=== PATIENT | female | born 1930 | race Caucasian/White ===

== ENCOUNTER 2017-06-19 22:37 | Inpatient (IN) | payer OTHER, MEDICARE ==
[~2017-06-19] VITALS: Ht 170.2 cm; Wt 80.3 kg
[~2017-06-19 22:37] MED LIST: ATEN-104 PO; CELE20TA PO; CLOP75 PO; DICY1TAB26 PO; ECOT81TA2 PO; LEVO50TA4 PO; LISI5 PO; LORA-392 OR; MAGN400 PO; METF-324 PO; SIMV20 PO
[2017-06-19 22:43] VITALS: BP 138/97; PULSE 90; RESP 18; TEMP 97.6; O2SAT 91
[2017-06-19 22:52] VITALS: O2SAT 95
[2017-06-19] MEDS ORDERED: LEVO50TA4 PO (22:52)
[2017-06-19] MEDS ORDERED: CLOP75TA PO (22:52)
[2017-06-19] MEDS ORDERED: METF500T PO (22:52)
[2017-06-19] MEDS ORDERED: SIMV20TA PO (22:52)
[2017-06-19 23:29] LABS: INTERNATIONAL NORMALIZED RATIO 1.1 RATIO; PROTHROMBIN TIME - PATIENT 11.4 SEC (9.8-11.6)
[2017-06-19 23:30] LABS: ALBUMIN 3.8 GM/DL (3.4-5.0); ALT (GPT) 34 U/L (10-53); BICARBONATE 22.9 MEQ/L (21.0-32.0); BLOOD UREA NITROGEN 20 MG/DL (7-18); CALCIUM 8.3 MG/DL (8.5-10.1); CHLORIDE 93 MEQ/L (98-107); CREATININE 0.92 MG/DL (0.50-1.00); GLOMERULAR FILTRATION RATE 58 ML/MIN (>89); GLUCOSE,RANDOM 174 MG/DL (74-106); SODIUM (NA) 129 MEQ/L (136-145)
--- NOTE | 2017-06-19 23:33 | PD ---
HPI Chief Complaint: Cardiac Complaint Time Seen by Provider: 23:29 Travel History International Travel<30 days: No Contact w/Intl Traveler<30days: No Traveled to known affect area: No History of Present Illness HPI This is a 86-year-old female with history of hypertension, diabetes mellitus, CHF, hyperlipidemia, hypothyroidism, presents here with complaints of palpitations, shortness of breath and swelling of her bilateral legs. When paramedics arrived, they found her to be in A. fib with RVR. They administered 20 mg of Cardizem. They state that her heart rate went down into the 80s and 90s. The patient denies any chest pain, chest pressure. She does report shortness of breath. There is no other complaints at time of my examination. According to the son who is also at the bedside, the patient's primary care physician recently retired without letting her know. She is been without a primary care doctor for several months now. She did see her new primary care doctor and was supposed to have all of her medications restarted. Son reports that there is been a couple that have not been started. PFSH Past Medical History Asthma: Yes ( A CHILD) Atrial Fibrillation: Yes Anxiety: Yes Depression: No Heart Rhythm Problems: Yes (A FIB) Cancer: No Cardiovascular Problems: Yes High Cholesterol: Yes Chest Pain: No Congestive Heart Failure: Yes Diabetes: Yes Patient Takes Glucophage: Yes Diminished Hearing: No Endocrine: Yes Genitourinary: No Headaches: Yes Hypertension: Yes Immune Disorder: No Implanted Vascular Access Dvce: No Musculoskeletal: No Neurologic: No Psychiatric: Yes Reproductive: No Respiratory: No Immunizations Current: No Thyroid Disease: No Triglycerides - High: Yes Tetanus Vaccination: Unknown Influenza Vaccination: No PNEUMOCCOCAL Vaccine (Year): 1 Menopausal: Yes Past Surgical History Abdominal Surgery: Yes (CHOLECYSTECTOMY) Cholecystectomy: Yes Mastectomy: Yes (R) Other Surgery: Yes (Cholecystectomy, right mastectomy) Social History Alcohol Use: No Tobacco Use: No Substance Use: No Allergies-Medications (Allergen,Severity, Reaction): Coded Allergies: penicillin G (Unverified Allergy, Severe, "PASSED OUT", 06/19/17) Sulfa (Sulfonamide Antibiotics) (Unverified Allergy, Unknown, 06/19/17) Reported Meds & Prescriptions Reported Meds & Active Scripts Active Reported Simvastatin 20 Mg Tab 20 Mg PO DAILY Levothyroxine (Levothyroxine Sodium) 50 Mcg Tab 50 Mcg PO DAILY Metformin (Metformin HCl) 500 Mg Tab 500 Mg PO BIDPC Clopidogrel (Clopidogrel Bisulfate) 75 Mg Tab 75 Mg PO DAILY Review of Systems Except as stated in HPI: all other systems reviewed are Neg General / Constitutional: No: Fever, Chills HENT: No: Headaches, Lightheadedness, Neck Pain Cardiovascular: Positive: Palpitations, Tachycardia, No: Chest Pain or Discomfort, Irregular Rhythm Respiratory: Positive: Shortness of Breath, No: Cough Gastrointestinal: No: Nausea, Vomiting, Abdominal Pain Genitourinary: No: Frequency, Dysuria Musculoskeletal: Positive: Edema, No: Pain Neurologic: No: Weakness, Dizziness, Headache Physical Exam Narrative GENERAL: Well-developed well-nourished female in no acute respiratory distress. SKIN: Focused skin assessment warm/dry. HEAD: Atraumatic. Normocephalic. EYES: Pupils equal and round. No scleral icterus. No injection or drainage. ENT: No nasal bleeding or discharge. Mucous membranes pink and moist. NECK: Trachea midline. Supple. No JVD. CARDIOVASCULAR: Tachycardic with a rate in the low 100s. It was 107 when I entered the room. It appears to be sinus rhythm on the monitor however there is occasional PAC noted. Patient was reportedly in A. fib with RVR prior to arrival. RESPIRATORY: Fine rales heard at the bilateral bases. GASTROINTESTINAL: Abdomen soft, non-tender, nondistended. Hepatic and splenic margins not palpable. MUSCULOSKELETAL: No obvious deformities. No clubbing. No cyanosis. 1+-2+ edema bilateral pretibial areas. NEUROLOGICAL: Awake and alert. No obvious cranial nerve deficits. Motor grossly within normal limits. Data Data Last Documented VS Vital Signs Date Time Temp Pulse Resp B/P (MAP) Pulse Ox O2 Delivery O2 Flow Rate FiO2 06/20/17 00:10 110 16 152/93 (112) 98 Nasal Cannula 2.00 06/19/17 22:43 97.6 Orders Orders Complete Blood Count With Diff (06/19/17 23:02) Comprehensive Metabolic Panel (06/19/17 23:02) Ckmb (Isoenzyme) Profile (06/19/17 23:02) Troponin I (06/19/17 23:02) B-Type Natriuretic Peptide (06/19/17 23:02) Prothrombin Time / Inr (Pt) (06/19/17 23:02) Act Partial Throm Time (Ptt) (06/19/17 23:02) Thyroid Stimulating Hormone (06/19/17 23:02) Chest, Single Ap (06/19/17 23:02) Iv Access Insert/Monitor (06/19/17 23:02) Ecg Monitoring (06/19/17 23:02) Oximetry (06/19/17 23:02) Diltiazem Inj (Cardizem Inj) (06/19/17 23:30) Furosemide Inj (Lasix Inj) (06/20/17 00:00) Urinary Catheter Insert/Apply (06/20/17 00:40) Morphine Inj (Morphine Inj) (06/20/17 00:45) Ondansetron Inj (Zofran Inj) (06/20/17 00:45) Admit Order (Ed Use Only) (06/20/17 01:01) Labs Laboratory Tests Test 06/19/17 23:00 White Blood Count 11.7 TH/MM3 Red Blood Count 4.18 MIL/MM3 Hemoglobin 11.7 GM/DL Hematocrit 35.2 % Mean Corpuscular Volume 84.2 FL Mean Corpuscular Hemoglobin 28.1 PG Mean Corpuscular Hemoglobin Concent 33.3 % Red Cell Distribution Width 15.2 % Platelet Count 292 TH/MM3 Mean Platelet Volume 8.8 FL Neutrophils (%) (Auto) 77.6 % Lymphocytes (%) (Auto) 12.7 % Monocytes (%) (Auto) 8.5 % Eosinophils (%) (Auto) 0.9 % Basophils (%) (Auto) 0.3 % Neutrophils # (Auto) 9.1 TH/MM3 Lymphocytes # (Auto) 1.5 TH/MM3 Monocytes # (Auto) 1.0 TH/MM3 Eosinophils # (Auto) 0.1 TH/MM3 Basophils # (Auto) 0.0 TH/MM3 CBC Comment DIFF FINAL Differential Comment Prothrombin Time 11.4 SEC Prothromb Time International Ratio 1.1 RATIO Activated Partial Thromboplast Time 27.2 SEC Blood Urea Nitrogen 20 MG/DL Creatinine 0.92 MG/DL Random Glucose 174 MG/DL Total Protein 6.8 GM/DL Albumin 3.8 GM/DL Calcium Level 8.3 MG/DL Alkaline Phosphatase 72 U/L Aspartate Amino Transf (AST/SGOT) 33 U/L Alanine Aminotransferase (ALT/SGPT) 34 U/L Total Bilirubin 0.6 MG/DL Sodium Level 129 MEQ/L Potassium Level 3.8 MEQ/L Chloride Level 93 MEQ/L Carbon Dioxide Level 22.9 MEQ/L Anion Gap 13 MEQ/L Estimat Glomerular Filtration Rate 58 ML/MIN Total Creatine Kinase 91 U/L Troponin I 0.38 NG/ML B-Type Natriuretic Peptide 1707 PG/ML Thyroid Stimulating Hormone 3rd Gen 4.490 uIU/ML MDM Medical Decision Making Medical Screen Exam Complete: Yes Emergency Medical Condition: Yes Differential Diagnosis Uncontrolled A. fib versus CHF versus ACS versus metabolic derangement. Narrative Course 86-year-old female presents after having shortness of breath and palpitations. Patient found her to be in A. fib RVR. Patient was given 20 mg of IV diltiazem. She was in sinus tach when she arrived here. She started to increase her heart rate into the low 100s. She was started on a diltiazem drip. Chest x-ray shows congestive heart failure. BNP was 1700. Troponin was elevated at 0.34 which is likely secondary to the CHF and the elevated heart rate. Patient is having no chest pain at time of my examination. Case was discussed with Dr. Hoover. She is in agreement with her admission. She will be admitted to the [facility]. Critical Care Narrative Aggregate critical care time was 45 minutes. Time to perform other separately billable procedures was not included in the critical care time. My time did not include minutes spent treating any other patients simultaneously or on activities that did not directly contribute to the patient's treatment. The services I provided to this patient were to treat and/or prevent clinically significant deterioration that could result in: I provided critical care services requiring my management, as noted below: Chart data review, documentation time, medication orders and management, vital sign assessments/reviewing monitor data, ordering and reviewing lab tests, ordering and interpreting/reviewing x-rays and diagnostic studies, care of the patient and discussion of the patient with the admitting physicians. Diagnosis Primary Impression: Atrial fibrillation with RVR Additional Impressions: YVONNE (acute kidney injury) Hyponatremia Hypothyroidism Elevated troponin Congestive heart failure Admitting Information Admitting Physician Requests: Admit Braydon Garcia MD Jun 19, 2017 23:33
[2017-06-19 23:40] LABS: ALKALINE PHOSPHATASE 72 U/L (45-117); AST (GOT) 33 U/L (15-37); TOTAL BILIRUBIN ADULT 0.6 MG/DL (0.2-1.0); TOTAL PROTEIN 6.8 GM/DL (6.4-8.2); TROPONIN I 0.38 NG/ML (0.02-0.05)
--- NOTE | 2017-06-19 23:47 | RADRPT ---
EXAM DATE/TIME: 06/19/2017 23:33 [facility] COMPARISON: CHEST SINGLE AP, December 19, 2015, 17:49. INDICATIONS : Chest pain, cough. MEDICAL HISTORY : None. SURGICAL HISTORY : None. ENCOUNTER: Initial ACUITY: 1 day PAIN SCORE: 2/10 LOCATION: Bilateral chest FINDINGS: A single view of the chest demonstrates cardiomegaly and right basilar consolidation. Probable small right pleural effusion. Pulmonary vascular congestion. Osseous structures are intact. CONCLUSION: 1. Cardiomegaly with pulmonary vascular congestion. 2. Right basilar consolidation and probable small pleural effusion. Jax Meadows MD on June 19, 2017 at 23:44 Board Certified Radiologist. This report was verified electronically.
[2017-06-20] VITALS (12 sets, daily range): BP systolic 102–152; BP diastolic 69–113; PULSE 68–110; RESP 16–21; TEMP 97.2–98.9; O2SAT 94–98
[2017-06-20] MEDS ORDERED: FUROSEMIDE 40 MG/4 ML VIAL IV PUSH ONE
[2017-06-20 00:02] LABS: AUTOMATED NEUTROPHIL # 9.1 TH/MM3 (1.8-7.7); BASOPHIL % 0.3 % (0.0-2.0); EOSINOPHIL # 0.1 TH/MM3 (0-0.4); EOSINOPHIL % 0.9 % (0.0-4.0); HEMATOCRIT 35.2 % (35.0-46.0); HEMOGLOBIN 11.7 GM/DL (11.6-15.3); LYMPH % 12.7 % (9.0-44.0); LYMPHOCYTE # 1.5 TH/MM3 (1.0-4.8); MEAN CELL VOLUME 84.2 FL (80.0-100.0); MEAN CORPUSCULAR HEMOGLOBIN 28.1 PG (27.0-34.0); MEAN CORPUSCULAR HGB CONC 33.3 % (32.0-36.0); MEAN PLATELET VOLUME 8.8 FL (7.0-11.0); MONO % 8.5 % (0.0-8.0); NEUT % 77.6 % (16.0-70.0); PLATELET COUNT 292 TH/MM3 (150-450); RED BLOOD COUNT 4.18 MIL/MM3 (4.00-5.30); RED CELL DISTRIBUTION WIDTH 15.2 % (11.6-17.2); WHITE BLOOD COUNT 11.7 TH/MM3 (4.0-11.0)
[2017-06-20] MEDS: DILTIAZEM INJ 125 MG in SODIUM CHLORIDE 0.9% INJ 100 ML IV PRN ×2 (00:09→10:21)
[2017-06-20] MEDS ORDERED: ONDANSETRON HCL 4 MG/2 ML VIAL IV PUSH ONE (00:45)
[2017-06-20] MEDS ORDERED: MORPHINE SULFATE 4 MG/ML INJ IV PUSH ONE (00:45)
[2017-06-20] MEDS ORDERED: SODIUM CHLOR 0.9% 1000 ML INJ 1,000 ML IV SCH (01:03)
[2017-06-20] MEDS ORDERED: ONDANSETRON HCL 4 MG/2 ML VIAL IVP PRN (01:15)
[2017-06-20] MEDS ORDERED: MORPHINE SULFATE 2 MG/ML INJ IV PUSH PRN (01:15)
[2017-06-20] MEDS ORDERED: SODIUM CHLORIDE 0.9% FLUSH 10 ML FLUSH IV FLUSH PRN (01:15)
[2017-06-20] MEDS ORDERED: SENNOSIDES 8.6 MG TAB PO PRN (01:15)
[2017-06-20] MEDS ORDERED: BISACODYL 10 MG SUPP RECTAL PRN (01:15)
[2017-06-20] MEDS ORDERED: MAGNESIUM HYDROXIDE SUSP 30 ML CUP PO PRN (01:15)
[2017-06-20] MEDS ORDERED: ACETAMINOPHEN/HYDROcodone 325 MG/5 MG TAB PO PRN (01:15)
[2017-06-20] MEDS ORDERED: LACTULOSE SYRUP 20 GM/30 ML CUP PO PRN (01:15)
--- NOTE | 2017-06-20 02:52 | HHI.HP ---
HPI Service [facility] Primary Care Physician Tanner Larsen MD Admission Diagnosis atrial fibrillation with rvr, chf, elevated troponin Diagnoses: (1) Atrial fibrillation with RVR Diagnosis: Principal (2) CHF (congestive heart failure) Diagnosis: Principal (3) Elevated troponin Diagnosis: Principal (4) DM (diabetes mellitus) Diagnosis: Principal Travel History International Travel<30 Days: No Contact w/Intl Traveler <30 Da: No Traveled to Known Affected Are: No History of Present Illness This is an 86-year-old female with a PMH of HTN, Hyperlipidemia, A. fib, Anxiety , CHF (Echo 01/01/2011 w/ EF 55-60%) and Hypothyroidism who was brought to the ER by EMS secondary to SOB and palpitations. Denies chest pain or cough. No associated fever, chills or sick contacts. Upon EMS arrival, pt noted to be in A-fib w/ RVR, HR 140's s/p Cardizem 20mg IV w/ some improvement. States she was previously following w/ Dr. Navarro, however he left the practice and was not given refills on her prescriptions. On arrival, BP 138/97, HR 90, O2 sat 91 % RA, Afebrile. WBC 11.7. Na 129. GFR 58. Troponin 0 0.38. BNP 1707. INR 1.1. CXR with cardiomegaly and pulmonary vascular congestion. Currently on Cardizem gtt Review of Systems Except as stated in HPI: all other systems reviewed are Neg ROS: 14 point review of systems otherwise negative. Past Family Social History Past Medical History PMH: HTN, Hyperlipidemia, A. fib, Anxiety, CHF (Echo 01/01/2011 w/ EF 55-60%) and Hypothyroidism Past Surgical History PAST SURGICAL HISTORY: Cholecystectomy, Right Mastectomy Allergies: Coded Allergies: penicillin G (Unverified Allergy, Severe, "PASSED OUT", 06/19/17) Sulfa (Sulfonamide Antibiotics) (Unverified Allergy, Unknown, 06/19/17) Family History PAST FAMILY HISTORY: Reviewed. No h/o DM or CAD Social History PAST SOCIAL HISTORY: Negative for alcohol, tobacco or drugs. Physical Exam Vital Signs Vital Signs Date Time Temp Pulse Resp B/P (MAP) Pulse Ox O2 Delivery O2 Flow Rate FiO2 06/20/17 02:09 105 16 151/101 (118) 95 Nasal Cannula 2.00 06/20/17 00:10 110 16 152/93 (112) 98 Nasal Cannula 2.00 06/20/17 00:09 110 152/93 06/19/17 22:52 95 Nasal Cannula 2.00 06/19/17 22:43 97.6 90 18 138/97 (111) 91 Physical Exam PE: GENERAL: Very pleasant elderly white female in no acute distress. HEENT: PERRLA, EOMI. No scleral icterus or conjunctival pallor. No lid lag or facial droop. CARDIOVASCULAR: Sinus tachycardia, HR 100's. No obvious murmurs to auscultation. No chest tenderness to palpation. RESPIRATORY: No obvious rhonchi or wheezing. Clear to auscultation. Breath sounds equal bilaterally. GASTROINTESTINAL: Abdomen soft, non-tender, nondistended. BS normal. MUSCULOSKELETAL: Extremities without clubbing, cyanosis, or edema. No obvious deformities. NEUROLOGICAL: Awake, alert and oriented x4. No focal neurologic deficits. Moving both upper and lower extremities spontaneously. Laboratory Laboratory Tests Test 06/19/17 23:00 White Blood Count 11.7 Red Blood Count 4.18 Hemoglobin 11.7 Hematocrit 35.2 Mean Corpuscular Volume 84.2 Mean Corpuscular Hemoglobin 28.1 Mean Corpuscular Hemoglobin Concent 33.3 Red Cell Distribution Width 15.2 Platelet Count 292 Mean Platelet Volume 8.8 Neutrophils (%) (Auto) 77.6 Lymphocytes (%) (Auto) 12.7 Monocytes (%) (Auto) 8.5 Eosinophils (%) (Auto) 0.9 Basophils (%) (Auto) 0.3 Neutrophils # (Auto) 9.1 Lymphocytes # (Auto) 1.5 Monocytes # (Auto) 1.0 Eosinophils # (Auto) 0.1 Basophils # (Auto) 0.0 CBC Comment DIFF FINAL Differential Comment Prothrombin Time 11.4 Prothromb Time International Ratio 1.1 Activated Partial Thromboplast Time 27.2 Blood Urea Nitrogen 20 Creatinine 0.92 Random Glucose 174 Total Protein 6.8 Albumin 3.8 Calcium Level 8.3 Alkaline Phosphatase 72 Aspartate Amino Transf (AST/SGOT) 33 Alanine Aminotransferase (ALT/SGPT) 34 Total Bilirubin 0.6 Sodium Level 129 Potassium Level 3.8 Chloride Level 93 Carbon Dioxide Level 22.9 Anion Gap 13 Estimat Glomerular Filtration Rate 58 Total Creatine Kinase 91 Troponin I 0.38 B-Type Natriuretic Peptide 1707 Thyroid Stimulating Hormone 3rd Gen 4.490 Result Diagram: 06/19/17 2300 06/19/17 2300 Caprini VTE Risk Assessment Caprini VTE Risk Assessment: Mod/High Risk (score >= 2) Caprini Risk Assessment Model Point Value = 1 Point Value = 2 Point Value = 3 Point Value = 5 Age 41-60 Minor surgery BMI > 25 kg/m2 Swollen legs Varicose veins or History of unexplained or recurrent spontaneous Oral contraceptives or hormone replacement Sepsis (< 1 month) Serious lung disease, including pneumonia (< 1 month) Abnormal pulmonary function Acute myocardial infarction Congestive heart failure (< 1 month) History of inflammatory bowel disease Medical patient at bed rest Age 61-74 Arthroscopic surgery Major open surgery (> 45 min) Laparoscopic surgery (> 45 min) Malignancy Confined to bed (> 72 hours) Immobilizing plaster cast Central venous access Age >= 75 History of VTE Family history of VTE Factor V Leiden Prothrombin [id number] Lupus anticoagulant Anticardiolipin antibodies Elevated serum homocysteine Heparin-induced thrombocytopenia Other congenital or acquired thrombophilia Stroke (< 1 month) Elective arthroplasty Hip, pelvis, or leg fracture Acute spinal cord injury (< 1 month) Prophylaxis Regimen Total Risk Factor Score Risk Level Prophylaxis Regimen 0-1 Low Early ambulation 2 Moderate Order ONE of the following: *Sequential Compression Device (SCD) *Heparin 5000 units SQ BID 3-4 Higher Order ONE of the following medications: *Heparin 5000 units SQ TID *Enoxaparin/Lovenox 40 mg SQ daily (WT < 150 kg, CrCl > 30 mL/min) *Enoxaparin/Lovenox 30 mg SQ daily (WT < 150 kg, CrCl > 10-29 mL/min) *Enoxaparin/Lovenox 30 mg SQ BID (WT < 150 kg, CrCl > 30 mL/min) AND/OR *Sequential Compression Device (SCD) 5 or more Highest Order ONE of the following medications: *Heparin 5000 units SQ TID (Preferred with Epidurals) *Enoxaparin/Lovenox 40 mg SQ daily (WT < 150 kg, CrCl > 30 mL/min) *Enoxaparin/Lovenox 30 mg SQ daily (WT < 150 kg, CrCl > 10-29 mL/min) *Enoxaparin/Lovenox 30 mg SQ BID (WT < 150 kg, CrCl > 30 mL/min) AND *Sequential Compression Device (SCD) Assessment and Plan Problem List: (1) Atrial fibrillation with RVR ICD Code: I48.91 - Unspecified atrial fibrillation (2) Elevated troponin ICD Code: R74.8 - Abnormal levels of other serum enzymes Status: Acute (3) CHF (congestive heart failure) ICD Code: I50.9 - Heart failure, unspecified (4) DM (diabetes mellitus) ICD Code: E11.9 - Type 2 diabetes mellitus without complications Assessment and Plan A/P: 1. A. fib: w/ RVR upon EMS arrival, s/p Cardizem 20mg IV w/ improvement, persistent tachycardia, currently on Cardizem gtt. Admit to [facility], telemetry. Consult Cardiology for further eval. Check Echo. 2. Elevated Trop: Trop 0.38, no c/o chest pain, likely secondary to rapid A- fib and CHF. Check serial cardiac enzymes. ASA, Statin. Consult Cardiology as above. 3. CHF: Acute on Chronic. Diastolic. Echo 01/01/11 w/ EF 55-60%. BNP 1707. CXR with pulmonary vascular congestion, images reviewed by me. S/p Lasix 40mg IV in ER. Monitor I/O. Continue diuresis. 4. DM: Sliding scale w/ Accu-Cheks. Hold Metformin for possible cardiac intervention. 5. DVT Prophylaxis: Heparin sq 6. Social work for d/c planning as needed. 7. Case discussed w/ ER physician at length, labs/records/imaging reviewed by me. Physician Certification 2 Midnight Certification Type: Admission for Inpatient Services Order for Inpatient Services The services are ordered in accordance with Medicare regulations or non- Medicare payer requirements, as applicable. In the case of services not specified as inpatient-only, they are appropriately provided as inpatient services in accordance with the 2-midnight benchmark. Estimated LOS (days): 2 days is the estimated time the patient will need to remain in the hospital, assuming treatment plan goals are met and no additional complications. Post-Hospital Plan: Not yet determined Nela Hull MD Jun 20, 2017 02:52
[2017-06-20] MEDS: ACETAMINOPHEN 325 MG TAB PO PRN (03:50)
[2017-06-20] MEDS: LEVOTHYROXINE SODIUM 50 MCG TAB PO SCH (05:20)
[2017-06-20] MEDS ORDERED: FUROSEMIDE 20 MG/2 ML VIAL IV PUSH SCH (09:00)
[2017-06-20] MEDS: DOCUSATE SODIUM 50 MG/SENNA 8.6 MG TAB PO SCH ×2 (09:03→20:44)
[2017-06-20] MEDS: PRAVASTATIN SOD 40 MG TAB PO SCH (09:03)
[2017-06-20] MEDS: CLOPIDOGREL 75 MG TAB PO SCH (09:03)
[2017-06-20] MEDS: HEPARIN SODIUM - SQ 10,000 UNITS/ML VIAL SQ SCH ×2 (09:04→20:44)
[2017-06-20] MEDS: SODIUM CHLORIDE 0.9% FLUSH 10 ML FLUSH IV FLUSH SCH ×2 (09:04→20:44)
[2017-06-20] MEDS ORDERED: DILTIAZEM INJ 125 MG in SODIUM CHLORIDE 0.9% INJ 100 ML IV PRN (10:30)
[2017-06-20 10:33] LABS: AUTOMATED NEUTROPHIL # 9.9 TH/MM3 (1.8-7.7); BASOPHIL # 0.1 TH/MM3 (0-0.2); BASOPHIL % 0.5 % (0.0-2.0); EOSINOPHIL # 0.3 TH/MM3 (0-0.4); HEMATOCRIT 34.8 % (35.0-46.0); HEMOGLOBIN 11.4 GM/DL (11.6-15.3); LYMPH % 13.9 % (9.0-44.0); LYMPHOCYTE # 1.8 TH/MM3 (1.0-4.8); MEAN CELL VOLUME 85.3 FL (80.0-100.0); MEAN CORPUSCULAR HEMOGLOBIN 28.1 PG (27.0-34.0); MEAN CORPUSCULAR HGB CONC 32.9 % (32.0-36.0); MEAN PLATELET VOLUME 8.5 FL (7.0-11.0); MONO % 9.2 % (0.0-8.0); MONOCYTE # 1.2 TH/MM3 (0-0.9); NEUT % 74.4 % (16.0-70.0); PLATELET COUNT 268 TH/MM3 (150-450); RED BLOOD COUNT 4.08 MIL/MM3 (4.00-5.30); RED CELL DISTRIBUTION WIDTH 15.2 % (11.6-17.2); WHITE BLOOD COUNT 13.3 TH/MM3 (4.0-11.0)
[2017-06-20 10:54] LABS: ALBUMIN 3.8 GM/DL (3.4-5.0); BICARBONATE 28.5 MEQ/L (21.0-32.0); BLOOD UREA NITROGEN 19 MG/DL (7-18); CALCIUM 8.3 MG/DL (8.5-10.1); CHLORIDE 90 MEQ/L (98-107); CREATININE 0.89 MG/DL (0.50-1.00); GLOMERULAR FILTRATION RATE 60 ML/MIN (>89); GLUCOSE,RANDOM 163 MG/DL (74-106); SODIUM (NA) 127 MEQ/L (136-145)
[2017-06-20 10:55] LABS: ALT (GPT) 38 U/L (10-53); AST (GOT) 35 U/L (15-37)
[2017-06-20 10:59] LABS: ALKALINE PHOSPHATASE 72 U/L (45-117); TOTAL BILIRUBIN ADULT 0.6 MG/DL (0.2-1.0); TOTAL PROTEIN 6.8 GM/DL (6.4-8.2)
--- NOTE | 2017-06-20 11:02 | MB ---
cc: Aubrey Darling MD DATE: 06/20/2017 For evaluation of AFib, CHF and elevated troponin. Peggy Garrett is an 86-year-old woman admitted to the hospital, having been out of medicines for a year. She used to be a patient of Dr. Navarro who is retired and Dr. Dhiraj Dempsey. She last saw Dr. Dempsey 01/22/2011. Dr. Navarro retired. She let herself completely run out of medications and had not bothered to seek a new physician or get back on medications. This is despite having hypertension, hyperlipidemia, and diabetes mellitus. When asked why she thought it was okay to be completely without medications for a year, she did not have any excuse. She comes in now with the onset of shortness of breath and palpitations. She really does not have any typical angina that I can elicit, although her troponin is elevated. Shortness of breath and swelling has been going on at least a couple of days. PAST MEDICAL HISTORY: Includes hypertension, diabetes, hyperlipidemia, previous arrhythmia for which she was on digoxin and beta heidi for over 20 years, hypothyroidism, history of rheumatic fever and heart murmur as a child, previous normal echos. PAST SURGICAL HISTORY: Includes right mastectomy and cholecystectomy. MEDICATIONS: She was on nothing prior to this admission. ALLERGIES: INCLUDE PENICILLIN. FAMILY HISTORY: Noncontributory. SOCIAL HISTORY: Nonsmoker, nondrinker. . IMPORTANT REVIEW OF SYSTEMS: She more or less stopped walking in the past year and has not driven in the past year. PHYSICAL EXAMINATION: Reveals an elderly white female, alert and oriented. VITAL SIGNS: Charted. She is on IV Diltiazem currently at 10 mg an hour. Telemetry showing sinus rhythm. HEENT: Unremarkable. NECK: Shows mild JVD. There are no carotid bruits. CHEST: Shows bibasilar rales. CARDIAC: S1, S2. Regular rate and rhythm. Soft systolic murmur early peaking. ABDOMEN: Soft, nontender. EXTREMITIES: Reveal 1+ edema. EKG shows sinus rhythm with first-degree AV block, atrial premature complexes, nonspecific ST-T wave changes. Cannot exclude anterior ischemia or ST changes from LVH. LABORATORIES: Are charted. Her TSH is 4.49. She has been off Synthroid a year. BNP is elevated at 1707. Troponin is elevated at 0.38; repeat value is pending. Creatinine is preserved at 0.92. Hematocrit 35.2. Chest x-ray shows cardiomegaly and CHF. . Apparently she was in atrial fibrillation, RVR. She has converted to sinus rhythm after receiving IV diltiazem. All the EKGs here are showing sinus rhythm. IMPRESSION: 1. Paroxysmal atrial fibrillation with rapid ventricular response, has converted back to sinus rhythm. She has an elevated CHADS-VASc score and ideally should be anticoagulated. 2. Hypertension, hyperlipidemia and diabetes, off medicines for 1 year. She is in new-onset congestive heart failure. Echo pending to see how much of this is systolic versus diastolic. PLAN: I am going to introduce low-dose beta heidi and low-dose diltiazem and wean her off the diltiazem drip. Going to resume her losartan. Going to increase her Lasix to 40 IV b.i.d. and add potassium supplements. I talked to her about a heart catheterization. She would rather be treated conservatively. Once she is tuned up, will probably consider nuclear stress test. Recheck troponin tomorrow morning. Recheck electrolytes and magnesium tomorrow morning. Further therapy to be determined. MD JADE Hahn/KINGA , 10:35 AM , 11:02 AM
[2017-06-20] MEDS: LOSARTAN 25 MG TAB PO SCH ×2 (12:35→20:44)
[2017-06-20] MEDS: DILTIAZEM-CD 120 MG CAP ER PO SCH (12:35)
[2017-06-20] MEDS: METOPROLOL TARTRATE 25 MG TAB PO SCH ×2 (12:35→20:44)
[2017-06-20] MEDS: POTASSIUM CHLORIDE 20 MEQ CONTROLLED RELEASE TAB PO SCH ×2 (12:35→17:00)
[2017-06-20] MEDS: ASPIRIN 81 MG CHEW TAB PO SCH (12:35)
[2017-06-20] MEDS: LORazepam 0.5 MG TAB PO PRN (16:59)
[2017-06-20] MEDS: FUROSEMIDE 20 MG/2 ML VIAL IV PUSH SCH (17:00)
[2017-06-21] VITALS (8 sets, daily range): BP systolic 109–135; BP diastolic 64–97; PULSE 71–103; RESP 17–24; TEMP 97.5–97.9; O2SAT 92–98
--- NOTE | 2017-06-21 00:11 | EKG ---
Date Performed: 06/20/2017 Time Performed: 07:19:59 PTAGE: 86 years EKG: Sinus rhythm WITH FIRST DEGREE AV BLOCK WITH OCCASIONAL SUPRAVENTRICULAR PREMATURE COMPLEXES NONSPECIFIC T-WAVE A BNORMALITY ABNORMAL ECG PREVIOUS TRACING : 06/19/2017 22.45 DOCTOR: Liban Thorpe Interpretating Date/Time 06/21/2017 00:04:47
--- NOTE | 2017-06-21 00:18 | EKG ---
Date Performed: 06/19/2017 Time Performed: 22:45:02 PTAGE: 86 years EKG: SINUS TACHYCARDIA WITH OCCASIONAL SUPRAVENTRICULAR PREMATURE COMPLEXES POSSIBLE LEFT ATRIAL ENLARGEMENT MODERATE T-WAVE ABNORMALITY, CONSIDER ANTERIOR ISCHEMIA ABNORMAL ECG PREVIOUS TRACING : 12/19/2015 17.13 DOCTOR: Liban Thorpe Interpretating Date/Time 06/21/2017 00:09:22
[2017-06-21] MEDS: LEVOTHYROXINE SODIUM 50 MCG TAB PO SCH (05:04)
[2017-06-21 08:24] LABS: ALBUMIN 3.5 GM/DL (3.4-5.0); ALT (GPT) 36 U/L (10-53); AST (GOT) 30 U/L (15-37); BICARBONATE 23.5 MEQ/L (21.0-32.0); BLOOD UREA NITROGEN 21 MG/DL (7-18); CALCIUM 8.6 MG/DL (8.5-10.1); CHLORIDE 91 MEQ/L (98-107); CREATININE 0.86 MG/DL (0.50-1.00); GLOMERULAR FILTRATION RATE 63 ML/MIN (>89); GLUCOSE,RANDOM 108 MG/DL (74-106); SODIUM (NA) 128 MEQ/L (136-145)
[2017-06-21 08:28] LABS: ALKALINE PHOSPHATASE 70 U/L (45-117); MAGNESIUM 1.3 MG/DL (1.5-2.5); TOTAL BILIRUBIN ADULT 0.6 MG/DL (0.2-1.0); TOTAL PROTEIN 6.8 GM/DL (6.4-8.2); TROPONIN I 0.28 NG/ML (0.02-0.05)
--- NOTE | 2017-06-21 09:04 | PD.CARD.PN ---
Subjective Subjective Remarks Denies angina/chest pain, dyspnea Objective Medications Current Medications Medications (Trade) Dose Ordered Sig/Angelina Route Start Time Stop Time Status Last Admin (NS Flush) 2 ml UNSCH PRN IV FLUSH 06/20/17 01:15 (NS Flush) 2 ml BID IV FLUSH 06/20/17 09:00 06/20/17 09:04 (Zofran Inj) 4 mg Q6H PRN IVP 06/20/17 01:15 (Heparin Inj) 5,000 units Q12H SQ 06/20/17 09:00 06/20/17 20:44 (Tylenol) 650 mg Q6H PRN PO 06/20/17 01:15 06/20/17 03:50 ([place] 5-325 Mg) 1 tab Q4H PRN PO 06/20/17 01:15 (Morphine Inj) 2 mg Q3H PRN IV PUSH 06/20/17 01:15 (Meka-Colace) 1 tab BID PO 06/20/17 09:00 06/20/17 20:44 (Milk Of Magnesia Liq) 30 ml Q12H PRN PO 06/20/17 01:15 (Senokot) 17.2 mg Q12H PRN PO 06/20/17 01:15 (Dulcolax Supp) 10 mg DAILY PRN RECTAL 06/20/17 01:15 (Lactulose Liq) 30 ml DAILY PRN PO 06/20/17 01:15 (Plavix) 75 mg DAILY PO 06/20/17 09:00 06/20/17 09:03 (Synthroid) 50 mcg DAILY@0600 PO 06/20/17 06:00 06/21/17 05:04 (Pravachol) 40 mg DAILY PO 06/20/17 09:00 06/20/17 09:03 (Cozaar) 25 mg BID PO 06/20/17 11:00 06/20/17 20:44 (Lasix Inj) 40 mg BID@ IV PUSH 06/20/17 18:00 06/20/17 17:00 (Lopressor) 25 mg Q12HR PO 06/20/17 11:00 06/20/17 20:44 (Cardizem Cd) 120 mg DAILY PO 06/20/17 11:00 06/20/17 12:35 Diltiazem HCl 125 mg/Sodium Chloride 125 ml @ 5 mls/hr TITRATE PRN IV 06/20/17 10:30 (KCl) 20 meq TID PO 06/20/17 13:00 06/20/17 17:00 (Aspirin Chew) 81 mg DAILY PO 06/20/17 11:00 06/20/17 12:35 (Ativan) 0.5 mg Q8H PRN PO 06/20/17 17:00 06/20/17 16:59 Magnesium Sulfate/ Dextrose 100 ml @ 100 mls/hr Q1H IV 06/21/17 09:00 06/21/17 10:59 UNV Vital Signs / I&O Vital Signs Date Time Temp Pulse Resp B/P (MAP) Pulse Ox O2 Delivery O2 Flow Rate FiO2 06/21/17 04:09 84 06/21/17 04:00 97.6 103 18 135/87 (103) 93 06/21/17 00:00 97.9 95 17 109/69 (82) 98 06/20/17 23:59 91 06/20/17 20:08 97 06/20/17 20:00 97.9 96 18 108/69 (82) 98 06/20/17 16:00 76 06/20/17 16:00 98.9 90 21 118/80 (93) 94 06/20/17 12:00 85 06/20/17 12:00 98.0 85 18 102/77 (85) 95 06/20/17 10:21 77 I/O 06/20/17 06/20/17 06/20/17 06/21/17 06/21/17 06/21/17 07:00 15:00 23:00 07:00 15:00 23:00 Intake Total 120 ml 800 ml 120 ml Output Total 700 ml 600 ml 550 ml Balance -580 ml 200 ml -430 ml Intake Oral 120 ml 800 ml 120 ml Output Urine Total 700 ml 600 ml 550 ml Bladder Scan Volume Amount 8 ml # Bowel Movements 0 Physical Exam GENERAL: No acute distress. Confused HEENT: Jugular venous is nl CHEST: Lungs diminished right base (?effusion). Rales resolved. Unlabored respiratory effort. CARDIAC: Regular rate and rhythm without S3, S4, or murmur. Tele SR with PVC's/ PAC's ABDOMEN: Soft, nontender, no hepatosplenomegaly. Bowel sounds present. EXTREMITIES: No clubbing, cyanosis, or edema. Laboratory Laboratory Tests Test 06/20/17 10:15 06/20/17 15:00 06/21/17 06:45 White Blood Count 13.3 TH/MM3 Red Blood Count 4.08 MIL/MM3 Hemoglobin 11.4 GM/DL Hematocrit 34.8 % Mean Corpuscular Volume 85.3 FL Mean Corpuscular Hemoglobin 28.1 PG Mean Corpuscular Hemoglobin Concent 32.9 % Red Cell Distribution Width 15.2 % Platelet Count 268 TH/MM3 Mean Platelet Volume 8.5 FL Neutrophils (%) (Auto) 74.4 % Lymphocytes (%) (Auto) 13.9 % Monocytes (%) (Auto) 9.2 % Eosinophils (%) (Auto) 2.0 % Basophils (%) (Auto) 0.5 % Neutrophils # (Auto) 9.9 TH/MM3 Lymphocytes # (Auto) 1.8 TH/MM3 Monocytes # (Auto) 1.2 TH/MM3 Eosinophils # (Auto) 0.3 TH/MM3 Basophils # (Auto) 0.1 TH/MM3 CBC Comment DIFF FINAL Differential Comment Blood Urea Nitrogen 19 MG/DL 21 MG/DL Creatinine 0.89 MG/DL 0.86 MG/DL Random Glucose 163 MG/DL 108 MG/DL Total Protein 6.8 GM/DL 6.8 GM/DL Albumin 3.8 GM/DL 3.5 GM/DL Calcium Level 8.3 MG/DL 8.6 MG/DL Alkaline Phosphatase 72 U/L 70 U/L Aspartate Amino Transf (AST/SGOT) 35 U/L 30 U/L Alanine Aminotransferase (ALT/SGPT) 38 U/L 36 U/L Total Bilirubin 0.6 MG/DL 0.6 MG/DL Sodium Level 127 MEQ/L 128 MEQ/L Potassium Level 3.6 MEQ/L 3.6 MEQ/L Chloride Level 90 MEQ/L 91 MEQ/L Carbon Dioxide Level 28.5 MEQ/L 23.5 MEQ/L Anion Gap 9 MEQ/L 14 MEQ/L Estimat Glomerular Filtration Rate 60 ML/MIN 63 ML/MIN Troponin I 0.30 NG/ML 0.28 NG/ML 0.28 NG/ML Magnesium Level 1.3 MG/DL Assessment and Plan Problem List: (1) Altered mental state ICD Codes: R41.82 - Altered mental status, unspecified Plan: Plan medical therapy, no invasive approach if can be avoided (2) Atrial fibrillation ICD Codes: I48.91 - Unspecified atrial fibrillation Status: Acute Plan: has converted. Will likely switch to Eliquis before discharge (3) CHF (congestive heart failure) ICD Codes: I50.9 - Heart failure, unspecified Plan: Improved. Check CXR in AM. Replete magnesium (4) Elevated troponin ICD Codes: R74.8 - Abnormal levels of other serum enzymes Status: Acute Plan: No angina. Plan medical therapy (5) Hyponatremia ICD Codes: E87.1 - Hypo-osmolality and hyponatremia Plan: Fluid restrict Aubrey Darling MD Jun 21, 2017 09:04
[2017-06-21] MEDS: CLOPIDOGREL 75 MG TAB PO SCH (09:28)
[2017-06-21] MEDS: DILTIAZEM-CD 120 MG CAP ER PO SCH (09:28)
[2017-06-21] MEDS: METOPROLOL TARTRATE 25 MG TAB PO SCH ×2 (09:29→21:17)
[2017-06-21] MEDS: PRAVASTATIN SOD 40 MG TAB PO SCH (09:29)
[2017-06-21] MEDS: FUROSEMIDE 20 MG/2 ML VIAL IV PUSH SCH ×2 (09:29→17:27)
[2017-06-21] MEDS: HEPARIN SODIUM - SQ 10,000 UNITS/ML VIAL SQ SCH ×2 (09:29→21:17)
[2017-06-21] MEDS: ASPIRIN 81 MG CHEW TAB PO SCH (09:29)
[2017-06-21] MEDS: POTASSIUM CHLORIDE 20 MEQ CONTROLLED RELEASE TAB PO SCH ×4 (09:29→21:17)
[2017-06-21] MEDS: LOSARTAN 25 MG TAB PO SCH ×2 (09:29→21:17)
[2017-06-21] MEDS: DOCUSATE SODIUM 50 MG/SENNA 8.6 MG TAB PO SCH ×2 (09:29→21:00)
[2017-06-21] MEDS: SODIUM CHLORIDE 0.9% FLUSH 10 ML FLUSH IV FLUSH SCH ×2 (09:30→21:33)
[2017-06-21] MEDS: MAGNESIUM SULFATE 1 GM PREMIX 100 ML IV SCH ×2 (09:41→11:52)
[2017-06-21] MEDS: LORazepam 0.5 MG TAB PO PRN ×2 (13:13→21:32)
[2017-06-21] MEDS: CITALOPRAM HYDROBROMIDE 20 MG TAB PO SCH (13:13)
--- NOTE | 2017-06-21 14:28 | ECHRPT ---
Indication: Heart failure, unspecified CONCLUSIONS The left ventricular systolic function is severely reduced with an estimated ejection fraction in th e range of 30-35%. Wall thickness is normal. Mildly dilated left ventricle. The left atrial size is mildly dilated. Diffuse calcification of the aortic valve. Trace aortic valve regurgitation. Trileaflet aortic valve. Xkpmxoyr-pz-wqzhto mitral valve regurgitation. There is mild to moderate tricuspid valve regurgitation. The estimated pulmonary arterial pressure is 39.4 mmHg. A left sided pleural effusion is present. BP: 135 / 87 HR: 103 Rhythm: Other MEASUREMENTS (Male / Female) Normal Values Technical Quality:Good 2D ECHO LV Diastolic Diameter PLAX 6.0 cm 4.2 - 5.9 / 3.9 - 5.3 cm LV Systolic Diameter PLAX 5.2 cm IVS Diastolic Thickness 0.9 cm 0.6 - 1.0 / 0.6 - 0.9 cm LVPW Diastolic Thickness 0.9 cm 0.6 - 1.0 / 0.6 - 0.9 cm LV Relative Wall Thickness 0.3 LVOT Diameter 2.2 cm M-MODE Aortic Root Diameter MM 2.8 cm LA Systolic Diameter MM 4.0 cm LA Ao Ratio MM 1.4 AV Cusp Separation MM 1.6 cm DOPPLER AV Peak Velocity 107.0 cm/s AV Peak Gradient 4.6 mmHg AI Peak Velocity 167.0 cm/s AI Peak Gradient 11.2 mmHg AI Pressure Half Time 359.0 ms LVOT Peak Velocity 67.1 cm/s LVOT Peak Gradient 1.8 mmHg AV Area Cont Eq pk 2.4 cm MR Peak Velocity 461.0 cm/s MR Peak Gradient 85.0 mmHg Mitral E Point Velocity 107.0 cm/s Mitral A Point Velocity 64.7 cm/s Mitral E to A Ratio 1.7 LV E' Lateral Velocity 5.8 cm/s Mitral E to LV E' Lateral Ratio 18.6 LV E' Septal Velocity 4.9 cm/s Mitral E to LV E' Septal Ratio 22.0 TR Peak Velocity 271.0 cm/s TR Peak Gradient 29.4 mmHg Right Atrial Pressure 10.0 mmHg Pulmonary Artery Systolic Pressu 39.4 mmHg Right Ventricular Systolic Press 39.4 mmHg PV Peak Velocity 78.7 cm/s PV Peak Gradient 2.5 mmHg FINDINGS LEFT VENTRICLE The left ventricular systolic function is severely reduced with an estimated ejection fraction in th e range of 30-35%. Wall thickness is normal. Mildly dilated left ventricle. RIGHT VENTRICLE Normal right ventricular size and systolic function. LEFT ATRIUM The left atrial size is mildly dilated. RIGHT ATRIUM The right atrial size is normal. ATRIAL SEPTUM Normal atrial septal thickness without atrial level shunting by limited color doppler interrogation. AORTA The aortic root and proximal ascending aorta are normal in size on limited imaging. MITRAL VALVE Qirjpvtz-bh-fnjose mitral valve regurgitation. AORTIC VALVE Diffuse calcification of the aortic valve. Trace aortic valve regurgitation. Trileaflet aortic valve. TRICUSPID VALVE There is mild to moderate tricuspid valve regurgitation. The estimated pulmonary arterial pressure is 39.4 mmHg. PULMONARY VALVE No pulmonary valve regurgitation or stenosis. VESSELS The inferior vena cava is normal in size. PERICARDIUM A left sided pleural effusion is present. Kt Rodriguez MD, FACC, [facility] [place] (Electronically Signed) Final Date:21 June 2017 14:27
--- NOTE | 2017-06-21 14:36 | RADRPT ---
EXAM DATE/TIME: 06/21/2017 14:01 [facility] COMPARISON: CT BRAIN W/O CONTRAST, December 30, 2010, 18:29. INDICATIONS : Confusion, altered mental status RADIATION DOSE: 56.35 CTDIvol (mGy) MEDICAL HISTORY : Cardiovascular disease. Hypertension. Diabetes, Asthma SURGICAL HISTORY : None. ENCOUNTER: Initial ACUITY: 1 day PAIN SCALE: 0/10 LOCATION: cranial TECHNIQUE: Multiple contiguous axial images were obtained of the head. Using automated exposure control and adj ustment of the mA and/or kV according to patient size, radiation dose was kept as low as reasonably a chievable to obtain optimal diagnostic quality images. DICOM format image data is available electro nically for review and comparison. FINDINGS: CEREBRUM: The ventricles are normal for age. No evidence of midline shift, mass lesion, hemorrhage or acute in farction. No extra-axial fluid collections are seen. POSTERIOR FOSSA: The cerebellum and brainstem are intact. The 4th ventricle is midline. The cerebellopontine angle i s unremarkable. EXTRACRANIAL: The visualized portion of the orbits is intact. SKULL: The calvaria is intact. No evidence of skull fracture. CONCLUSION: No acute disease. Stable exam without evidence of acute infarct, hemorrhage, mass or edema. Gallo Cassidy MD on June 21, 2017 at 14:31 Board Certified Radiologist. This report was verified electronically.
[2017-06-21] MEDS: ACETAMINOPHEN 325 MG TAB PO PRN (17:26)
--- NOTE | 2017-06-21 19:21 | HHI.PR ---
Subjective Remarks Resting in bed no chest pain she is going for a stress test Afebrile, per the nurse she is was slightly confused Objective Vitals Vital Signs Date Time Temp Pulse Resp B/P (MAP) Pulse Ox O2 Delivery O2 Flow Rate FiO2 06/21/17 16:10 97.7 96 24 121/73 (89) 94 06/21/17 16:00 103 06/21/17 12:00 71 06/21/17 12:00 Room Air 06/21/17 12:00 97.9 93 20 133/64 (87) 93 06/21/17 08:00 97.7 94 20 121/90 (100) 92 06/21/17 08:00 2.00 06/21/17 04:09 84 06/21/17 04:00 97.6 103 18 135/87 (103) 93 06/21/17 00:00 97.9 95 17 109/69 (82) 98 06/20/17 23:59 91 06/20/17 20:08 97 06/20/17 20:00 97.9 96 18 108/69 (82) 98 I/O 06/20/17 06/20/17 06/20/17 06/21/17 06/21/17 06/21/17 07:00 15:00 23:00 07:00 15:00 23:00 Intake Total 120 ml 800 ml 120 ml Output Total 700 ml 600 ml 550 ml Balance -580 ml 200 ml -430 ml Intake Oral 120 ml 800 ml 120 ml Output Urine Total 700 ml 600 ml 550 ml Bladder Scan Volume Amount 8 ml # Bowel Movements 0 Result Diagram: 06/20/17 1015 06/21/17 0645 Objective Remarks GENERAL: This is a well-nourished, well-developed patient, in no apparent distress. SKIN: No rashes, warm and dry HEAD: Atraumatic. Normocephalic. EYES: Pupils equal round and reactive. Extraocular motions intact. No scleral icterus. ENT: Nose without bleeding, or drainage, Airway patent. NECK: Trachea midline. Supple CARDIOVASCULAR: Regular rate and rhythm without murmurs, gallops, or rubs. RESPIRATORY: Fair air entry bilaterally. No wheezes, rales, or rhonchi. GASTROINTESTINAL: Abdomen soft, non-tender, nondistended. Positive bowel sounds MUSCULOSKELETAL: Extremities without clubbing, cyanosis, or edema. Pedal pulses appreciated NEUROLOGICAL: Awake and alert. Moves all extremity. A/P Problem List: (1) Atrial fibrillation with RVR ICD Code: I48.91 - Unspecified atrial fibrillation (2) Elevated troponin ICD Code: R74.8 - Abnormal levels of other serum enzymes Status: Acute (3) CHF (congestive heart failure) ICD Code: I50.9 - Heart failure, unspecified (4) DM (diabetes mellitus) ICD Code: E11.9 - Type 2 diabetes mellitus without complications Assessment and Plan 1. A. fib: w/ RVR upon EMS arrival, s/p Cardizem 20mg IV w/ improvement, persistent tachycardia, currently on Cardizem gtt. Admit to [facility], telemetry. Consult Cardiology for further eval. Check Echo. 2. Elevated Trop: Trop 0.38, no c/o chest pain, likely secondary to rapid A- fib and CHF. Check serial cardiac enzymes. ASA, Statin. Consult Cardiology as above. 3. CHF: Acute on Chronic. Diastolic. Echo 01/01/11 w/ EF 55-60%. BNP 1707. CXR with pulmonary vascular congestion, images reviewed by me. S/p Lasix 40mg IV in ER. Monitor I/O. Continue diuresis. 4. DM: Sliding scale w/ Accu-Cheks. Hold Metformin for possible cardiac intervention. 5. DVT Prophylaxis: Heparin sq 06/21: Appreciate cardiology consultation plan for stress testing once feels stable mostly today, continue monitoring blood pressure heart rate Melody Sky MD Jun 21, 2017 19:21
[2017-06-22] VITALS (9 sets, daily range): BP systolic 109–132; BP diastolic 58–78; PULSE 82–106; RESP 16–20; TEMP 97.2–97.8; O2SAT 93–98
[2017-06-22] MEDS: LEVOTHYROXINE SODIUM 50 MCG TAB PO SCH (05:40)
[2017-06-22] MEDS: LORazepam 0.5 MG TAB PO PRN ×2 (05:40→17:18)
--- NOTE | 2017-06-22 06:19 | RADRPT ---
EXAM DATE/TIME: 06/22/2017 05:27 [facility] COMPARISON: CHEST SINGLE AP, June 19, 2017, 23:33. INDICATIONS : Shortness of breath. MEDICAL HISTORY : Cardiovascular disease. Hypertension. Diabetes, Asthma SURGICAL HISTORY : Cholecystectomy. Mastectomy, right. ENCOUNTER: Subsequent ACUITY: 4 - 6 days PAIN SCORE: 0/10 LOCATION: Bilateral chest FINDINGS: A single view of the chest demonstrates cardiomegaly and bibasilar densities. Pulmonary vascular abran estion. Tortuous thoracic aorta. Osseous structures are intact. CONCLUSION: Improving bibasilar densities. Jax Meadows MD on June 22, 2017 at 6:16 Board Certified Radiologist. This report was verified electronically.
[2017-06-22] MEDS: DOCUSATE SODIUM 50 MG/SENNA 8.6 MG TAB PO SCH ×2 (09:48→20:42)
[2017-06-22] MEDS: SODIUM CHLORIDE 0.9% FLUSH 10 ML FLUSH IV FLUSH SCH ×2 (09:48→20:43)
[2017-06-22] MEDS: PRAVASTATIN SOD 40 MG TAB PO SCH (09:48)
[2017-06-22] MEDS: LOSARTAN 25 MG TAB PO SCH ×2 (09:48→20:42)
[2017-06-22] MEDS: ASPIRIN 81 MG CHEW TAB PO SCH (09:49)
[2017-06-22] MEDS: DILTIAZEM-CD 120 MG CAP ER PO SCH (09:49)
[2017-06-22] MEDS: POTASSIUM CHLORIDE 20 MEQ CONTROLLED RELEASE TAB PO SCH ×4 (09:49→20:42)
[2017-06-22] MEDS: METOPROLOL TARTRATE 25 MG TAB PO SCH ×2 (09:50→20:42)
[2017-06-22] MEDS: CITALOPRAM HYDROBROMIDE 20 MG TAB PO SCH (09:50)
[2017-06-22] MEDS: CLOPIDOGREL 75 MG TAB PO SCH (09:50)
[2017-06-22] MEDS: FUROSEMIDE 20 MG/2 ML VIAL IV PUSH SCH ×2 (09:51→17:20)
[2017-06-22] MEDS: HEPARIN SODIUM - SQ 10,000 UNITS/ML VIAL SQ SCH ×2 (10:09→20:42)
[2017-06-22 10:16] LABS: BICARBONATE 22.4 MEQ/L (21.0-32.0); CALCIUM 8.1 MG/DL (8.5-10.1); CREATININE 0.81 MG/DL (0.50-1.00); MAGNESIUM 1.7 MG/DL (1.5-2.5)
--- NOTE | 2017-06-22 14:39 | HHI.PR ---
Subjective Remarks Patient just coming from the bathroom she is having mild short of breath She still me she gets short of breath easily on exertion Afebrile Objective Vitals Vital Signs Date Time Temp Pulse Resp B/P (MAP) Pulse Ox O2 Delivery O2 Flow Rate FiO2 06/22/17 12:00 97.4 100 18 117/78 (91) 96 06/22/17 12:00 97.6 102 18 127/76 (93) 95 06/22/17 11:58 86 06/22/17 08:00 97.5 106 18 109/58 (75) 93 06/22/17 08:00 Room Air 06/22/17 07:50 82 06/22/17 04:00 97.4 98 16 132/71 (91) 97 06/22/17 01:43 Room Air 06/22/17 00:00 97.8 95 18 123/61 (81) 96 06/21/17 20:00 97.5 91 19 132/97 (109) 95 06/21/17 16:10 97.7 96 24 121/73 (89) 94 06/21/17 16:00 103 I/O 06/21/17 06/21/17 06/21/17 06/22/17 06/22/17 06/22/17 07:00 15:00 23:00 07:00 15:00 23:00 Intake Total 120 ml 100 ml Output Total 550 ml Balance -430 ml 100 ml Intake Oral 120 ml 100 ml Output Urine Total 550 ml Bladder Scan Volume Amount 8 ml # Voids 7 # Bowel Movements 0 0 Result Diagram: 06/20/17 1015 06/22/17 0813 Objective Remarks GENERAL: This is a well-nourished, well-developed patient, just came from the bathroom feeling slightly short of breath SKIN: No rashes, warm and dry HEAD: Atraumatic. Normocephalic. EYES: Pupils equal round and reactive. Extraocular motions intact. No scleral icterus. ENT: Nose without bleeding, or drainage, Airway patent. NECK: Trachea midline. Supple CARDIOVASCULAR: Regular rate and rhythm without murmurs, gallops, or rubs. RESPIRATORY: Fair air entry bilaterally. No wheezes, rales, or rhonchi. GASTROINTESTINAL: Abdomen soft, non-tender, nondistended. Positive bowel sounds MUSCULOSKELETAL: Extremities without clubbing, cyanosis, or edema. Pedal pulses appreciated NEUROLOGICAL: Awake and alert. Moves all extremity. A/P Problem List: (1) Atrial fibrillation with RVR ICD Code: I48.91 - Unspecified atrial fibrillation (2) Elevated troponin ICD Code: R74.8 - Abnormal levels of other serum enzymes Status: Acute (3) CHF (congestive heart failure) ICD Code: I50.9 - Heart failure, unspecified (4) DM (diabetes mellitus) ICD Code: E11.9 - Type 2 diabetes mellitus without complications Assessment and Plan 1. A. fib: w/ RVR upon EMS arrival, s/p Cardizem 20mg IV w/ improvement, persistent tachycardia, currently on Cardizem gtt. Admit to [facility], telemetry. Consult Cardiology for further eval. Check Echo. 2. Elevated Trop: Trop 0.38, no c/o chest pain, likely secondary to rapid A- fib and CHF. Check serial cardiac enzymes. ASA, Statin. Consult Cardiology as above. 3. CHF: Acute on Chronic. Diastolic. Echo 01/01/11 w/ EF 55-60%. BNP 1707. CXR with pulmonary vascular congestion, images reviewed by me. S/p Lasix 40mg IV in ER. Monitor I/O. Continue diuresis. 4. DM: Sliding scale w/ Accu-Cheks. Hold Metformin for possible cardiac intervention. 5. DVT Prophylaxis: Heparin sq 06/22: Appreciate cardiology consultation plan for stress testing once feels stable mostly today, continue monitoring blood pressure heart rate, chest x-ray looks better today, 2D echo showed 30-35% EF moderate to severe MR, TR and AR mild to moderate Discharge Planning When cleared by cardiology Melody Sky MD Jun 22, 2017 14:39
[2017-06-23] VITALS (10 sets, daily range): BP systolic 108–141; BP diastolic 64–87; PULSE 89–104; RESP 18–20; TEMP 97.2–97.9; O2SAT 92–97
[2017-06-23] MEDS: LORazepam 0.5 MG TAB PO PRN ×3 (00:18→19:26)
[2017-06-23] MEDS: LEVOTHYROXINE SODIUM 50 MCG TAB PO SCH (05:21)
[2017-06-23] MEDS: DILTIAZEM-CD 120 MG CAP ER PO SCH (08:49)
[2017-06-23] MEDS: CITALOPRAM HYDROBROMIDE 20 MG TAB PO SCH (08:50)
[2017-06-23] MEDS: CLOPIDOGREL 75 MG TAB PO SCH (08:50)
[2017-06-23] MEDS: PRAVASTATIN SOD 40 MG TAB PO SCH (08:50)
[2017-06-23] MEDS: ASPIRIN 81 MG CHEW TAB PO SCH (08:50)
[2017-06-23] MEDS: POTASSIUM CHLORIDE 20 MEQ CONTROLLED RELEASE TAB PO SCH ×2 (08:50→11:17)
[2017-06-23] MEDS: DOCUSATE SODIUM 50 MG/SENNA 8.6 MG TAB PO SCH ×2 (08:50→22:05)
[2017-06-23] MEDS: LOSARTAN 25 MG TAB PO SCH (08:50)
[2017-06-23] MEDS: HEPARIN SODIUM - SQ 10,000 UNITS/ML VIAL SQ SCH (08:51)
[2017-06-23] MEDS: FUROSEMIDE 20 MG/2 ML VIAL IV PUSH SCH (08:51)
[2017-06-23] MEDS: METOPROLOL TARTRATE 25 MG TAB PO SCH ×2 (08:52→22:05)
[2017-06-23] MEDS: SODIUM CHLORIDE 0.9% FLUSH 10 ML FLUSH IV FLUSH SCH ×2 (08:52→22:04)
[2017-06-23] MEDS ORDERED: TORSEMIDE 20 MG TAB PO SCH (09:00)
[2017-06-23] MEDS ORDERED: LOSARTAN 50 MG TAB PO SCH (09:00)
--- NOTE | 2017-06-23 09:05 | PD.CARD.PN ---
Subjective Subjective Remarks Denies angina/chest pain, dyspnea Objective Medications Current Medications Medications (Trade) Dose Ordered Sig/Angelina Route Start Time Stop Time Status Last Admin (NS Flush) 2 ml UNSCH PRN IV FLUSH 06/20/17 01:15 (NS Flush) 2 ml BID IV FLUSH 06/20/17 09:00 06/23/17 08:52 (Zofran Inj) 4 mg Q6H PRN IVP 06/20/17 01:15 (Tylenol) 650 mg Q6H PRN PO 06/20/17 01:15 06/21/17 17:26 ([place] 5-325 Mg) 1 tab Q4H PRN PO 06/20/17 01:15 06/23/17 05:22 (Morphine Inj) 2 mg Q3H PRN IV PUSH 06/20/17 01:15 (Meka-Colace) 1 tab BID PO 06/20/17 09:00 06/23/17 08:50 (Milk Of Magnesia Liq) 30 ml Q12H PRN PO 06/20/17 01:15 06/21/17 09:28 (Senokot) 17.2 mg Q12H PRN PO 06/20/17 01:15 (Dulcolax Supp) 10 mg DAILY PRN RECTAL 06/20/17 01:15 (Lactulose Liq) 30 ml DAILY PRN PO 06/20/17 01:15 06/21/17 17:26 (Plavix) 75 mg DAILY PO 06/20/17 09:00 06/23/17 08:50 (Synthroid) 50 mcg DAILY@0600 PO 06/20/17 06:00 06/23/17 05:21 (Pravachol) 40 mg DAILY PO 06/20/17 09:00 06/23/17 08:50 (Lopressor) 25 mg Q12HR PO 06/20/17 11:00 06/23/17 08:52 (Cardizem Cd) 120 mg DAILY PO 06/20/17 11:00 06/23/17 08:49 Diltiazem HCl 125 mg/Sodium Chloride 125 ml @ 5 mls/hr TITRATE PRN IV 06/20/17 10:30 (Aspirin Chew) 81 mg DAILY PO 06/20/17 11:00 06/23/17 08:50 (Ativan) 0.5 mg Q8H PRN PO 06/20/17 17:00 06/23/17 00:18 (CeleXA) 20 mg DAILY PO 06/21/17 12:15 06/23/17 08:50 (Eliquis) 5 mg BID PO 06/23/17 09:00 UNV (Cozaar) 50 mg DAILY PO 06/23/17 09:00 UNV (KCl) 20 meq DAILY PO 06/23/17 09:00 UNV (Demadex) 20 mg DAILY PO 06/23/17 09:00 UNV Current Medications Medications (Trade) Dose Ordered Sig/Angelina Route Start Time Stop Time Status Last Admin (NS Flush) 2 ml UNSCH PRN IV FLUSH 06/20/17 01:15 (NS Flush) 2 ml BID IV FLUSH 06/20/17 09:00 06/23/17 08:52 (Zofran Inj) 4 mg Q6H PRN IVP 06/20/17 01:15 (Tylenol) 650 mg Q6H PRN PO 06/20/17 01:15 06/21/17 17:26 ([place] 5-325 Mg) 1 tab Q4H PRN PO 06/20/17 01:15 06/23/17 05:22 (Morphine Inj) 2 mg Q3H PRN IV PUSH 06/20/17 01:15 (Meka-Colace) 1 tab BID PO 06/20/17 09:00 06/23/17 08:50 (Milk Of Magnesia Liq) 30 ml Q12H PRN PO 06/20/17 01:15 06/21/17 09:28 (Senokot) 17.2 mg Q12H PRN PO 06/20/17 01:15 (Dulcolax Supp) 10 mg DAILY PRN RECTAL 06/20/17 01:15 (Lactulose Liq) 30 ml DAILY PRN PO 06/20/17 01:15 06/21/17 17:26 (Plavix) 75 mg DAILY PO 06/20/17 09:00 06/23/17 08:50 (Synthroid) 50 mcg DAILY@0600 PO 06/20/17 06:00 06/23/17 05:21 (Pravachol) 40 mg DAILY PO 06/20/17 09:00 06/23/17 08:50 (Lopressor) 25 mg Q12HR PO 06/20/17 11:00 06/23/17 08:52 (Cardizem Cd) 120 mg DAILY PO 06/20/17 11:00 06/23/17 08:49 Diltiazem HCl 125 mg/Sodium Chloride 125 ml @ 5 mls/hr TITRATE PRN IV 06/20/17 10:30 (Aspirin Chew) 81 mg DAILY PO 06/20/17 11:00 06/23/17 08:50 (Ativan) 0.5 mg Q8H PRN PO 06/20/17 17:00 06/23/17 00:18 (CeleXA) 20 mg DAILY PO 06/21/17 12:15 06/23/17 08:50 (Eliquis) 5 mg BID PO 06/23/17 09:00 UNV (Cozaar) 50 mg DAILY PO 06/23/17 09:00 UNV (KCl) 20 meq DAILY PO 06/23/17 09:00 UNV (Demadex) 20 mg DAILY PO 06/23/17 09:00 UNV Vital Signs / I&O Vital Signs Date Time Temp Pulse Resp B/P (MAP) Pulse Ox O2 Delivery O2 Flow Rate FiO2 06/23/17 08:03 104 06/23/17 04:00 97.5 91 20 116/77 (90) 96 06/23/17 00:00 97.4 95 20 117/87 (97) 92 06/22/17 19:57 97.6 98 20 129/78 (95) 98 06/22/17 16:02 101 06/22/17 16:00 97.2 86 20 127/73 (91) 95 06/22/17 12:00 97.4 100 18 117/78 (91) 96 06/22/17 12:00 97.6 102 18 127/76 (93) 95 06/22/17 11:58 86 I/O 06/22/17 06/22/17 06/22/17 06/23/17 06/23/17 06/23/17 07:00 15:00 23:00 07:00 15:00 23:00 Intake Total 100 ml 480 ml Output Total 500 ml Balance 100 ml -20 ml Intake Oral 100 ml 480 ml Output Urine Total 500 ml # Voids 7 # Bowel Movements 0 0 Physical Exam GENERAL: No acute distress. Confused HEENT: Jugular venous is nl CHEST: Mostly unclear. Unlabored respiratory effort. CARDIAC: Regular rate and rhythm without S3, S4, or murmur. Tele SR with PVC's/ PAC's ABDOMEN: Soft, nontender, no hepatosplenomegaly. Bowel sounds present. EXTREMITIES: No clubbing, cyanosis, or edema. Assessment and Plan Problem List: (1) Altered mental state ICD Codes: R41.82 - Altered mental status, unspecified Plan: Spoke to son. She will need Possible [facility] or [facility] (2) Atrial fibrillation ICD Codes: I48.91 - Unspecified atrial fibrillation Status: Acute Plan: Start Eliquis. Stop ASA, Clopidogrel. Cont. BB and diltiazem (3) CHF (congestive heart failure) ICD Codes: I50.9 - Heart failure, unspecified Plan: Much better compensated (4) Elevated troponin ICD Codes: R74.8 - Abnormal levels of other serum enzymes Status: Acute Plan: In view of age and confusion will cancel plans to do SPECT or cath and istead treat her medically (5) Hyponatremia ICD Codes: E87.1 - Hypo-osmolality and hyponatremia Assessment and Plan I've changed all meds to PO. OK to discharge. Aubrey Darling MD Jun 23, 2017 09:05
[2017-06-23] MEDS: APIXABAN 5 MG TABLET PO SCH ×2 (11:16→22:05)
--- NOTE | 2017-06-23 12:04 | HHI.PR ---
Subjective Remarks seen with son at bedside no complains per son - some baseline dementia ambulatory - occasional uses a walker Objective Vitals Vital Signs Date Time Temp Pulse Resp B/P (MAP) Pulse Ox O2 Delivery O2 Flow Rate FiO2 06/23/17 08:03 104 06/23/17 08:00 97.2 91 18 141/81 (101) 96 06/23/17 04:00 97.5 91 20 116/77 (90) 96 06/23/17 00:00 97.4 95 20 117/87 (97) 92 06/22/17 19:57 97.6 98 20 129/78 (95) 98 06/22/17 16:02 101 06/22/17 16:00 97.2 86 20 127/73 (91) 95 I/O 06/22/17 06/22/17 06/22/17 06/23/17 06/23/17 06/23/17 06:59 14:59 22:59 06:59 14:59 22:59 Intake Total 100 ml 480 ml Output Total 500 ml Balance 100 ml -20 ml Intake Oral 100 ml 480 ml Output Urine Total 500 ml # Voids 7 # Bowel Movements 0 0 Result Diagram: 06/20/17 1015 06/22/17 0813 Imaging Last Impressions Chest X-Ray 06/22/17 0600 Signed Impressions: Service Date/Time: Thursday, June 22, 2017 05:27 - CONCLUSION: Improving bibasilar densities. Jax Meadows MD Head CT 06/21/17 0000 Signed Impressions: Service Date/Time: Wednesday, June 21, 2017 14:01 - CONCLUSION: No acute disease. Stable exam without evidence of acute infarct, hemorrhage, mass or edema. Gallo Cassidy MD Objective Remarks awake and alert, no acute distresss pleasant and cooperative anicteric lungs- no rales irregular rhythm- rate controlled abdomen soft, nontender extremities no edema moves all extremities spontaneously A/P Problem List: (1) Atrial fibrillation with RVR ICD Code: I48.91 - Unspecified atrial fibrillation (2) Elevated troponin ICD Code: R74.8 - Abnormal levels of other serum enzymes Status: Acute (3) CHF (congestive heart failure) ICD Code: I50.9 - Heart failure, unspecified (4) DM (diabetes mellitus) ICD Code: E11.9 - Type 2 diabetes mellitus without complications Assessment and Plan 86 years old A. fib: in RVR- now rate controlled Elevated Trop: Trop 0.38, no c/o chest pain, likely secondary to rapid A-fib and CHF. Acute Systolic heart failure- EF 30-35% BNP 1707. CXR with pulmonary vascular congestion, - cardiology ff - continue on meds- BB + CCB + ARB, Demadex - started on Eliquis DM: type 2 - on metformin- restart - no plan for intervention - check blood sugar bid and record - check a1C Underlying dementia -cognitive rehab Hyponatremia- ? chronic - recheck in am - monitor on diuretics History of hypothyroidism -on Synthroid 50 mcg po daily - TSH slightly elevated. recheck TSH, free T4, T3. - ff up as OP Discharge Planning - consult CM- for DC planning- SNF vs [facility] get PT/OT Guerrero Casper MD Jun 23, 2017 12:04
[2017-06-23] MEDS ORDERED: LOSARTAN 25 MG TAB PO ONE (12:30)
[2017-06-24] VITALS: BP 125/80; PULSE 97; RESP 18; TEMP 97.6; O2SAT 95
[2017-06-24] MEDS: LORazepam 0.5 MG TAB PO PRN (02:47)
[2017-06-24 03:50] VITALS: PULSE 81
[2017-06-24 04:00] VITALS: BP 126/78; PULSE 92; RESP 16; TEMP 97; O2SAT 95
[2017-06-24] MEDS: LEVOTHYROXINE SODIUM 50 MCG TAB PO SCH (05:58)
[2017-06-24 08:00] VITALS: BP 137/98; PULSE 99; RESP 19; TEMP 97.3; O2SAT 97
[2017-06-24 08:33] LABS: BICARBONATE 29.3 MEQ/L (21.0-32.0); BLOOD UREA NITROGEN 27 MG/DL (7-18); CALCIUM 8.9 MG/DL (8.5-10.1); CHLORIDE 92 MEQ/L (98-107); CREATININE 1.05 MG/DL (0.50-1.00); GLOMERULAR FILTRATION RATE 50 ML/MIN (>89); GLUCOSE,RANDOM 92 MG/DL (74-106); SODIUM (NA) 128 MEQ/L (136-145)
[2017-06-24] MEDS: SODIUM CHLORIDE 0.9% FLUSH 10 ML FLUSH IV FLUSH SCH (08:56)
[2017-06-24] MEDS: APIXABAN 5 MG TABLET PO SCH (08:57)
[2017-06-24] MEDS: DILTIAZEM-CD 120 MG CAP ER PO SCH (08:57)
[2017-06-24] MEDS: POTASSIUM CHLORIDE 20 MEQ CONTROLLED RELEASE TAB PO SCH (08:58)
[2017-06-24] MEDS: DOCUSATE SODIUM 50 MG/SENNA 8.6 MG TAB PO SCH (08:59)
[2017-06-24] MEDS: CITALOPRAM HYDROBROMIDE 20 MG TAB PO SCH (08:59)
[2017-06-24] MEDS: PRAVASTATIN SOD 40 MG TAB PO SCH (08:59)
[2017-06-24] MEDS: METOPROLOL TARTRATE 25 MG TAB PO SCH (08:59)
[2017-06-24] MEDS ORDERED: LOSARTAN 50 MG TAB PO SCH (09:00)
[2017-06-24] MEDS ORDERED: metFORMIN HCL 500 MG TAB PO SCH (09:00)
[2017-06-24] MEDS ORDERED: TORSEMIDE 20 MG TAB PO SCH (09:00)
[2017-06-24 11:18] LABS: FREE T3 1.83 PG/ML (2.18-3.98); FREE T4 1.5 NG/DL (0.76-1.46)
[2017-06-24 12:00] VITALS: BP 137/64; PULSE 95; RESP 19; TEMP 97.6; O2SAT 95
--- NOTE | 2017-06-24 12:46 | HHI.PR ---
Subjective Remarks Ms Woods is awake and alert, and interactive, oriented x 3 no complains ate well Objective Vitals Vital Signs Date Time Temp Pulse Resp B/P (MAP) Pulse Ox O2 Delivery O2 Flow Rate FiO2 06/24/17 08:00 97.3 99 19 137/98 (111) 97 06/24/17 04:00 97.0 92 16 126/78 (94) 95 06/24/17 03:50 81 06/24/17 00:00 97.6 97 18 125/80 (95) 95 06/24/17 00:00 Room Air 06/23/17 23:49 93 06/23/17 20:00 Room Air 06/23/17 20:00 97.9 94 18 135/80 (98) 97 06/23/17 16:01 95 06/23/17 16:00 97.5 94 18 108/75 (86) 96 I/O 06/23/17 06/23/17 06/23/17 06/24/17 06/24/17 06/24/17 07:00 15:00 23:00 07:00 15:00 23:00 Intake Total 480 ml 120 ml Balance 480 ml 120 ml Intake Oral 480 ml 120 ml # Voids 3 1 # Bowel Movements 1 0 Result Diagram: 06/20/17 1015 06/24/17 0657 Imaging Last Impressions Chest X-Ray 06/22/17 0600 Signed Impressions: Service Date/Time: Thursday, June 22, 2017 05:27 - CONCLUSION: Improving bibasilar densities. Jax Meadows MD Head CT 06/21/17 0000 Signed Impressions: Service Date/Time: Wednesday, June 21, 2017 14:01 - CONCLUSION: No acute disease. Stable exam without evidence of acute infarct, hemorrhage, mass or edema. Gallo Cassidy MD Objective Remarks awake and alert, no acute distress, oriented x 3, speech clear pleasant and cooperative anicteric lungs- no rales irregular rhythm- rate controlled abdomen soft, nontender extremities no edema moves all extremities spontaneously A/P Problem List: (1) Atrial fibrillation with RVR ICD Code: I48.91 - Unspecified atrial fibrillation (2) Elevated troponin ICD Code: R74.8 - Abnormal levels of other serum enzymes Status: Acute (3) CHF (congestive heart failure) ICD Code: I50.9 - Heart failure, unspecified (4) DM (diabetes mellitus) ICD Code: E11.9 - Type 2 diabetes mellitus without complications Assessment and Plan 86 years old A. fib: in RVR- now rate controlled Elevated Trop: Trop 0.38, no c/o chest pain, likely secondary to rapid A-fib and CHF. Acute Systolic heart failure- EF 30-35% BNP 1707. CXR with pulmonary vascular congestion, - cardiology ff - continue on meds- BB + CCB + ARB, Demadex - on Eliquis DM: type 2 - on metformin- restart - no plan for intervention - check blood sugar bid and record - check a1C Underlying dementia -cognitive rehab Hyponatremia- ? chronic - - monitor on diuretics History of hypothyroidism -on Synthroid 50 mcg po daily - TSH slightly elevated. recheck TSH, free T4, T3. - ff up as OP- recheck in 6 weeks Discharge Planning -SNF today if arranged Guerrero Casper MD Jun 24, 2017 12:46
[2017-06-24] MEDS ORDERED: APIX5TAB PO (12:51)
[2017-06-24] MEDS ORDERED: METO25TA3 PO (12:51)
[2017-06-24] MEDS ORDERED: COZA50TA PO (12:51)
[2017-06-24] MEDS ORDERED: DILT120C50 PO (12:51)
[2017-06-24] MEDS ORDERED: POTA20TA5 PO (12:51)
[2017-06-24] MEDS ORDERED: TORS1TAB12 PO (12:51)
[2017-06-24] MEDS ORDERED: CELE20TA PO (12:56)
== END 2017-06-24 15:58 | DRG 308 ==
LOC: NEPE 22:37 → NEDA 06-20 01:04 → N04A 06-20 03:37
PROVIDERS: ADMIT Internal Medicine; ATTEND Internal Medicine
DX: I48.0 Paroxysmal atrial fibrillation (principal); I50.21 Acute systolic (congestive) heart failure; N17.9 Acute kidney failure, unspecified; I50.33 Acute on chronic diastolic (congestive) heart failure; E87.1 Hypo-osmolality and hyponatremia; E03.9 Hypothyroidism, unspecified; E11.9 Type 2 diabetes mellitus without complications; R74.8 Abnormal levels of other serum enzymes; R00.0 Tachycardia, unspecified; E78.5 Hyperlipidemia, unspecified; I11.0 Hypertensive heart disease with heart failure; F03.90 Unspecified dementia, unspecified severity, without behavioral disturbance, psychotic disturbance, mood disturbance, and anxiety; F41.9 Anxiety disorder, unspecified; Z79.84 Long term (current) use of oral hypoglycemic drugs
CPT/HCPCS: 51702; 70450; 71045; 80048; 80053; 82140; 82550; 82948; 83036; 83735; 83880; 84439; 84443; 84481; 84484; 85025; 85610; 85730; 93005; 93306; 96365; 96375; J1644; J1940; J2270; J2405; J3475; J7030